=== PATIENT | female | born 1955 ===

== ENCOUNTER 2016-08-13 10:03 | Inpatient (IN) | payer BC ==
[2016-08-07 11:15] LABS: BASOPHILS 1.7 %; BASOPHILS ABSOLUTE 0.07 10/3/uL (0.0-0.16); EOSINOPHILS 3.9 %; EOSINOPHILS ABSOLUTE 0.16 10/3/uL (0.0-0.53); HEMATOCRIT 42.1 % (36.0-48.0); HEMOGLOBIN 14.1 g/dL (12.0-16.0); LYMPHOCYTES 31.1 %; LYMPHOCYTES ABSOLUTE 1.27 10/3/uL (0.67-4.30); MEAN CORPUS HGB CONC 33.5 g/dL (32.0-36.0); MEAN CORPUSCULAR HEMOGLOB 32.2 pg (26.0-34.0); MEAN CORPUSCULAR VOLUME 96.1 fL (80-100); MEAN PLATELET VOLUME 9.9 fL (9.2-13.0); MONOCYTES 11.3 %; MONOCYTES ABSOLUTE 0.46 10/3/uL (0.21-1.20); NEUTROPHILS ABSOLUTE 2.12 10/3/uL (2.02-8.40); PLATELET COUNT 274 10/3/uL (150-400); RBC DISTRIBUTION WIDTH 12.8 % (12.0-16.0); RED CELL COUNT 4.38 10/6/uL (4.0-5.6); WHITE BLOOD CELLS 4.1 10/3/uL (4.5-10.5)
[2016-08-07 11:16] LABS: MANUAL DIFF NO %
[2016-08-07 11:22] LABS: PARTIAL THROMBO TIME 31.4 SEC (22.5-37.2)
[2016-08-07 11:23] LABS: INTERNATIONAL NORMAL RATI 1.1 UNITS (-); PROTIME (NOT ORD) 14.1 SEC (12.0-14.5)
[2016-08-07 12:04] LABS: ASCORBIC ACID (UR NOT ORDER) NEG (NEG); BILIRUBIN, URINE NEGATIVE (NEG); KETONE, URINE NEGATIVE (NEG); LEUKOCYTE ESTERASE(NOT OR NEG (NEG); WBC (NOT ORDERED) (RFLEX) 1 (0-5)
[2016-08-07 12:19] LABS: A/G RATIO 1.3 (0.7-1.9); ALBUMIN 4.1 G/DL (3.5-5.0); ALKALINE PHOSPHATASE 91 U/L (45-117); BUN (BLOOD UREA NITROGEN) 21 MG/DL (6-23); CALCIUM, SERUM 8.6 MG/DL (8.5-10.4); CHLORIDE, SERUM 103 MMOL/L (96-112); CO2 (CARBON DIOXIDE) 28 MMOL/L (24-34); CREATININE 0.82 MG/DL (0.55-1.02); GFR AFRICAN AMERICAN 89 ML/MIN (>=60); GFR NON AFRICAN AMERICAN 77 ML/MIN (>=60); GLOBULIN 3.2 G/DL (2.5-4.1); GLUCOSE, SERUM 84 MG/DL (60-99); POTASSIUM, SERUM 4.4 MMOL/L (3.5-5.3); SGOT(AST) 16 U/L (5-40); SGPT(ALT) 24 U/L (5-65); SODIUM, SERUM 141 MMOL/L (135-148); TOTAL BILIRUBIN 0.6 MG/DL (0-1.2); TOTAL PROTEIN 7.3 G/DL (6.0-8.5)
--- NOTE | ~2016-08-13 | OP ---
Record Of Operation [facility] [address] [place]. [address] NAME: FELECIA GIBBONS : 51 STATUS : ADM IN PAT#: [id number] AGE: 60 ADM/REG DATE : 08/13/16 MR#: [id number] REPORT SERV DATE: 08/13/16 DICTATED BY: PARKER FLORES DATE: 08/13/16 REPORT STATUS : Draft TRANSCRIBED BY: MODL DATE: 08/13/16 DATE OF PROCEDURE: 08/13/2016 PREOPERATIVE DIAGNOSIS: Bilateral knee arthritis with varus. POSTOPERATIVE DIAGNOSIS: Bilateral knee arthritis with varus. PROCEDURE PERFORMED: Bilateral total knee arthroplasty, left then right. SURGEON: Parker Flores M.D. ASSISTANTS: Tracee Felder and Denise Ocampo. ANESTHESIA: General with adductor block and local infusion. PROCEDURE IN DETAIL: The patient is clearly identified and after obtaining informed consent is brought to the operating room at [facility] where anesthesia is induced uneventfully with excellent anesthetic effect. This concluded, with right knee being more symptomatic, we approached the right knee first. After Esmarch exsanguination was performed, the affected extremity is prepped and draped in the usual manner and after an appropriate time-out procedure is performed, via an anterior approach, the skin is divided, fascial planes are elevated, paramedial approach to the knee is made. The structures themselves are elevated, excised, and debrided where appropriate, whereupon the patella is carefully everted, calipered, and planed and with the size and type being reproduced with the appropriate-size patella, trialing is performed successfully. At this point, the patella is then carefully subluxed laterally, the knee is flexed, osteophytes around the distal femur are removed, followed by the ACL being divided. The femoral canal is entered and vented, at which point with the intramedullary guide being utilized, the distal femoral cut is made. At this point, the tibia is carefully subluxed anteriorly. The surrounding soft tissues to the tibia are protected with Hohmann retractors, at which point the extramedullary guide is utilized to perform the proximal tibial cut and after cleansing these tissues, the spacer block is utilized in extension to confirm excellent extension, stability, and alignment. The guiding pins are then all carefully removed and the knee is then flexed. The femur is sized, whereupon the anterior, posterior, chamfer, and box cuts are made appropriately. The proximal tibia then is assessed. Osteophytes and surrounding soft tissues are removed and debrided where appropriate. Posterior osteophytes are removed as well. The menisci are excised and thus concluding trialing performed successfully. The proximal tibia then is carefully prepared utilizing proper cement technique. The permanent implants have been carefully placed into position uneventfully whereupon copious irrigation is performed, the permanent tibial implants applied and thus concluded. With this concluded, anesthesia cleared for left lower extremity where upon after Esmarch exsanguination is performed, tourniquet is elevated at 350 mmHg. This is successfully tested. The affected extremity is prepped and draped in the usual manner and after an appropriate time-out procedure is performed, via an anterior approach, the skin is divided, fascial planes are elevated, paramedial approach to the knee is made. The structures Record Of [place] [id number] [facility] [place]. [address] NAME: FELECIA GIBBONS : 51 STATUS : ADM IN PAT#: [id number] AGE: 60 ADM/REG DATE : 08/13/16 MR#: [id number] REPORT SERV DATE: 08/13/16 DICTATED BY: PARKER FLORES DATE: 08/13/16 REPORT STATUS : Draft TRANSCRIBED BY: STEFFANY DATE: 08/13/16 themselves are elevated, excised, and debrided where appropriate, whereupon the patella is carefully everted, calipered, and planed and with the size and type being reproduced with the appropriate-size patella, trialing is performed successfully. At this point, the patella is then carefully subluxed laterally, the knee is flexed, osteophytes around the distal femur are removed, followed by the ACL being divided. The femoral canal is entered and vented, at which point with the intramedullary guide being utilized, the distal femoral cut is made. At this point, the tibia is carefully subluxed anteriorly. The surrounding soft tissues to the tibia are protected with Hohmann retractors, at which point the extramedullary guide is utilized to perform the proximal tibial cut and after cleansing these tissues, the spacer block is utilized in extension to confirm excellent extension, stability, and alignment. The guiding pins are then all carefully removed and the knee is then flexed. The femur is sized, whereupon the anterior, posterior, chamfer, and box cuts are made appropriately. The proximal tibia then is assessed. Osteophytes and surrounding soft tissues are removed and debrided where appropriate. Posterior osteophytes are removed as well. The menisci are excised and thus concluding trialing performed successfully. The proximal tibia then is carefully prepared utilizing proper cement technique. The permanent implants have been carefully placed into position uneventfully whereupon copious irrigation is performed, the permanent tibial implants applied and thus concluded. At this point, both lower extremities are cleansed and dressed and the patient is allowed to awaken and is transferred to the bed and subsequently to the recovery room in stable condition having tolerated the procedure well. ESTIMATED BLOOD LOSS: 150. FLUIDS: 1500. TOURNIQUET TIME: Left 34 minutes, right 33 minutes. PATHOLOGY: Sent specimen. MICROBIOLOGY: None. COMPLICATIONS: None. SPONGE AND NEEDLE COUNTS: Reportedly correct. ANTIBIOTICS: Administered appropriately preoperatively and ordered to be discontinued within 23 hours. IMPLANTS: For both knees: Attune knee by DePuy, femur 5 standard, tibia 5, patella 41, polyethylene 5/8. JN/NAMITAL Parker Flores, Record Of Operation [address] [address] NAME: FELECIA GIBBONS : 51 STATUS : ADM IN PAT#: [id number] AGE: 60 ADM/REG DATE : 08/13/16 MR#: [id number] REPORT SERV DATE: 08/13/16 DICTATED BY: PARKER FLORES DATE: 08/13/16 REPORT STATUS : Draft TRANSCRIBED BY: MODNay DATE: 08/13/16 [place] / [id number] CC: Parker Flores M.D.
--- NOTE | ~2016-08-13 | DS ---
Discharge Summary [facility] [address] [facility] [place]. [address] NAME: FELECIA GIBBONS : 51 STATUS : DIS IN PAT#: [id number] AGE: 60 ADM/REG DATE : 08/13/16 MR#: [id number] REPORT SERV DATE: 08/23/16 DICTATED BY: PARKER BOYER DATE: 08/23/16 REPORT STATUS : Draft TRANSCRIBED BY: STEFFANY DATE: 08/23/16 Data Collection from hospitalization DISCHARGE DIAGNOSES: 1. Bilateral knee arthritis with varus. 2. Hypothyroidism. CONSULTATIONS: None. PROCEDURES PERFORMED: Bilateral total knee arthroplasty, left, then right 08/13/2016. PATHOLOGY: Bone and soft tissue, right and left knee, total knee arthroplasty - degenerative changes, fatty marrow with extensive fibrosis, synovium with focal papillary hyperplasia. No tumor or active inflammation. DISCHARGE MEDICATIONS: Wellbutrin XL 300 mg every morning, Colace 100 mg twice a day, Pepcid 20 mg twice a day, ferrous sulfate 300 mg with breakfast and supper, Synthroid 150 mcg every morning, Theragran tablets 1 tablet with breakfast, Seroquel 12.5 mg at bedtime, Coumadin as instructed, Tylenol 650 mg every 4 hours as needed, Mylanta 30 mL as needed, Dulcolax 15 mg as needed, Benadryl 25 mg every six hours as needed and 25 mg at bedtime as needed, Marinol 5 mg every 8 hours as needed, Dilaudid 2 mg every 3 hours as needed, milk of magnesia 30 mL as needed, Zofran 4 mg every 4 hours as needed, MiraLax powder 1 packet twice a day as needed, Imitrex 100 mg as needed, Roxicodone 5-10 mg every 4 hours as needed. CONDITION AT DISCHARGE: Stable. DISPOSITION: The patient was discharged to [facility] on a regular diet with activities as instructed. She would follow up with me 2 weeks following discharge. HOSPITAL COURSE: This is a 60-year-old female, who had complained of bilateral knee pain. She said she had been having pain in her knee for about a year and a half. She had recently injections with only minimal relief. She began to have increased pain a few months prior to this admission. She does have bilateral knees with arthritis with varus. Treatment options were discussed and it was elected to proceed with surgical intervention. She was admitted to the hospital at this time for further evaluation and treatment. Upon admission, she was taken to the operating room where she underwent the above-mentioned procedure. She tolerated this well, and there were no complications. On postop day #1, she was evaluated by Occupational and Physical Therapy. She did have some nausea and vomiting. She had no calf tenderness. Over the next couple of days, she continued to progress. She still complained of pain in the knee. She wanted to stay on bed instead of getting up. RM hose remained in place. Discharge planning was performed. She was encouraged to mobilize with Physical Therapy. On 08/16/2016, she still complained of pain and that she was unable to sleep. She was working more with Physical Therapy. She had normal distal pulses. Discharge instructions were given. Due to her improved and stable condition, she was discharged to [facility] with the above-stated instructions. Information collected by: Marilyn Canada Discharge Summary [address] [address] NAME: FELECIA GIBBONS : 51 STATUS : DIS IN PAT#: [id number] AGE: 60 ADM/REG DATE : 08/13/16 MR#: [id number] REPORT SERV DATE: 08/23/16 DICTATED BY: PARKER BOYER DATE: 08/23/16 REPORT STATUS : Draft TRANSCRIBED BY: STEFFANY DATE: 08/23/16 I submit the above information as my discharge summary. NIKKI/STEFFANY Parker Boyer M.D. / [id number] CC: [facility]
[~2016-08-13 10:03] MED LIST: BEN25 PO; CALCIUM MAG PO; EXCEDRIN TENSI1 EACH PO; IMITREX100 MG PO; SEROQUEL25 PO; SYN.15 PO; WELLXL300 PO; ZINC PO
[2016-08-14 06:03] LABS: HEMOGLOBIN 11.6 g/dL (12.0-16.0)
[2016-08-14 06:07] LABS: INTERNATIONAL NORMAL RATI 1.2 UNITS (-); PROTIME (NOT ORD) 15.1 SEC (12.0-14.5)
[2016-08-14 06:15] LABS: CALCIUM, SERUM 8.1 MG/DL (8.5-10.4); CHLORIDE, SERUM 106 MMOL/L (96-112); CO2 (CARBON DIOXIDE) 26 MMOL/L (24-34); CREATININE 0.66 MG/DL (0.55-1.02); GFR AFRICAN AMERICAN 110 ML/MIN (>=60); GFR NON AFRICAN AMERICAN 95 ML/MIN (>=60); POTASSIUM, SERUM 3.9 MMOL/L (3.5-5.3); SODIUM, SERUM 141 MMOL/L (135-148)
[2016-08-14 06:16] LABS: BUN (BLOOD UREA NITROGEN) 11 MG/DL (6-23); GLUCOSE, SERUM 140 MG/DL (60-99)
[2016-08-15 06:44] LABS: HEMATOCRIT 26.8 % (36.0-48.0); HEMOGLOBIN 9.1 g/dL (12.0-16.0)
[2016-08-15 06:46] LABS: INTERNATIONAL NORMAL RATI 1.6 UNITS (-)
[2016-08-16 05:59] LABS: HEMATOCRIT 26.1 % (36.0-48.0); HEMOGLOBIN 8.7 g/dL (12.0-16.0); INTERNATIONAL NORMAL RATI 1.7 UNITS (-); PROTIME (NOT ORD) 19.7 SEC (12.0-14.5)
== END 2016-08-16 16:59 | DRG 462 ==
LOC: SDC/OF 10:03 → PACU 15:24 → 3SO 16:18
PROVIDERS: Orthopaedic Surgery
PROC: 0SRD0J9 Replacement of Left Knee Joint with Synthetic Substitute, Cemented, Open Approach (ICD-10-PCS; principal; 2016-08-13 12:00)
PROC: 3E0T3CZ (ICD-10-PCS; principal; 2016-08-13 12:00)
PROC: 0SRC0J9 Replacement of Right Knee Joint with Synthetic Substitute, Cemented, Open Approach (ICD-10-PCS; principal; 2016-08-13 12:00)
DX: M17.0 Bilateral primary osteoarthritis of knee (principal); F32.9 Major depressive disorder, single episode, unspecified; E03.9 Hypothyroidism, unspecified
CPT/HCPCS: 36415; 80048; 80053; 81001; 85014; 85018; 85025; 85610; 85730; 86850; 86900; 86901; 88305; 88311; 93005; 97110-GP; 97116-GP; 97162-GP; 97165-GO; 97530-GP; A9270-GY; C1776; J0690; J1170; J1885; J2250; J2274; J2405; J2550; J2710; J2795; J3010